=== PATIENT | female | born 1985 | race Caucasian/White ===

== ENCOUNTER 2021-09-24 00:49 | Observation (INO) | payer OTHER, SELFPAY ==
[2021-09-24] VITALS (8 sets, daily range): BP systolic 114; BP diastolic 72; PULSE 51–67; TEMP 36.4; O2SAT 99–100; BMI 25.7
[2021-09-24 01:16] LABS: Appearance Urine Clear (Clear); Bilirubin Urine Negative (Negative); Color Urine Yellow (Yellow); Glucose Urine UA Negative (Negative); Ketones Urine Negative (Negative); Leukocyte Esterase Ur Negative LEU/UL (NEGATIVE); Nitrate Urine Negative (Negative); Protein Urine Negative (Negative); Urobilinogen Urine 0.2 mg/dL (<2.0)
[2021-09-24 01:23] LABS: Mucus Urine Rare /lpf; RBC Urine 0-2 /hpf (0-2); Squamous Epithelial Cell Urine Moderate /hpf (Few); WBC Urine 0-3 /hpf (0-3)
[2021-09-24 01:32] LABS: Add Urine Microscopic? YES; Blood Urine Trace (Negative)
--- NOTE | 2021-10-06 13:30 | P.PNOB_ITS ---
OB - Triage/Final Diagnosis Visit Information Comments/Additional reasons for admission: I have assessed the risk for this patient, Fawn David, and determined that she would benefit from observation care. Evaluation Laboratory results: Laboratory Tests 09/24/21 01:10 Urine Color Yellow Urine Appearance Clear Urine pH 7.0 Ur Specific [place] 1.020 Urine Protein Negative Urine Glucose (UA) Negative Urine Ketones Negative Ur Blood (Man) Trace Urine Nitrate Negative Urine Bilirubin Negative Urine Urobilinogen 0.2 Ur Leukocyte Esterase Negative Urine RBC 0-2 Urine WBC 0-3 Ur Squamous Epith Cells Moderate H Urine Mucus Rare Final Diagnosis (1) Abdominal pain affecting : Code(s): O26.899 - Other specified related conditions, unspecified trimester; R10.9 - Unspecified abdominal pain Status: Acute
== END 2021-09-24 02:05 | disposition home or self-care (01) ==
PROVIDERS: Admitting Provider Obstetrics & Gynecology; Visit Provider Obstetrics & Gynecology
DX: O26.892 Other specified pregnancy related conditions, second trimester (principal); R10.9 Unspecified abdominal pain; Z3A.21 21 weeks gestation of pregnancy
CPT/HCPCS: 81001; 87086; G0378; G0379

== ENCOUNTER 2022-01-03 18:00 | Outpatient (CLI) | payer OTHER, SELFPAY ==
[2022-01-03 18:35] VITALS: BP 154/98; PULSE 61
[2022-01-03 18:43] LABS: Basophils Percent Auto 0.2 % (0.2-1.2); Eosinophils Percent Auto 0.5 % (0-4.4); Hematocrit 36.6 % (37.0-47.0); Hemoglobin 12.3 g/dL (12.0-15.0); Immature Granulocyte Absolute 0.06 K/mm3 (0.00-0.031); Immature Granulocyte Percent A 0.7 % (0-0.5); Immature Platelet Fraction Pct 7.4 % (0.9-11.2); Lymphocytes Absolute Auto 1.58 K/mm3 (0.9-3.2); Lymphocytes Percent Auto 18.4 % (18.3-44.2); Mean Corpuscular HGB Conc 33.6 g/dl (32-36); Mean Corpuscular Hemoglobin 29.8 pg (26-34); Mean Corpuscular Volume 88.6 fl (80-100); Mean Platelet Volume 11.5 fl (7.4-10.4); Monocytes Absolute Auto 0.6 K/mm3 (0.1-0.6); Monocytes Percent Auto 6.9 % (2.6-8.5); Neutrophils Absolute Auto 6.3 K/mm3 (1.3-6.7); Neutrophils Percent Auto 73.3 % (45.5-73.1); Platelet Count Result 110 k/mm3 (150-375); Red Blood Count 4.13 M/mm3 (4.2-5.4); Red Cell Distribution Width 13.5 % (11.5-14.5); White Blood Count 8.6 K/mm3 (4.5-10.0)
[2022-01-03 18:46] VITALS: BP 152/98; PULSE 58
[2022-01-03 18:50] LABS: Creatinine Urine 24.5 mg/dL; Total Protein Urine Random 11 mg/dL; Ur Ttl Prot Creatinine Ratio 0.45 mg/mg (0-0.20)
[2022-01-03 18:52] LABS: Appearance Urine Cloudy (Clear); Bilirubin Urine Negative (Negative); Color Urine Yellow (Yellow); Glucose Urine UA Negative (Negative); Ketones Urine Negative (Negative); Leukocyte Esterase Ur 2+ LEU/UL (NEGATIVE); Nitrate Urine Negative (Negative); Protein Urine Negative (Negative); Urobilinogen Urine 0.2 mg/dL (<2.0); pH Urine 6.5 (5.0-9.0)
[2022-01-03 18:55] LABS: Alanine Aminotransferase 41 U/L (6-35); Albumin Level 3.1 g/dL (3.5-5.1); Alkaline Phosphatase 176 U/L (38-126); Anion Gap 8 mmol/L (8-16); Aspartate Amino Transferase 44 U/L (14-36); Bilirubin,Total 0.3 mg/dL (0.2-1.3); Blood Urea Nitrogen 12 mg/dL (7-17); Calcium 8.6 mg/dL (8.4-10.2); Carbon Dioxide 20 mmol/L (22-30); Chloride 108 mmol/L (98-107); Estimated Glomerular Filt Rate > 60; Glucose 88 mg/dL (65-110); Potassium 3.6 mmol/L (3.4-5.0); Sodium 136 mmol/L (137-145); Uric Acid 3.6 mg/dL (2.5-7.5)
[2022-01-03 18:56] LABS: Add Urine Microscopic? YES; Bacteria Urine Trace /hpf; Blood Urine Trace-Intact (Negative); Calcium Oxalate Crystals Urine Present /hpf; Mucus Urine Rare /lpf; Squamous Epithelial Cell Urine Many /hpf (Few)
[2022-01-03 19:01] VITALS: BP 161/99; PULSE 59
== END 2022-01-03 19:20 | disposition home or self-care (01) ==
LOC: ANHOBOP 18:05 → ANHOBPP 18:06
PROVIDERS: PCP Internal Medicine; Visit Provider Obstetrics & Gynecology
DX: O13.9 Gestational [pregnancy-induced] hypertension without significant proteinuria, unspecified trimester (principal); Z3A.00 Weeks of gestation of pregnancy not specified
CPT/HCPCS: 36415; 59025; 80053; 81001; 82570; 84156; 84550; 85025; 85055; 87086; 87088; 87147; 99199

== ENCOUNTER 2022-01-03 21:32 | Inpatient (IN) | payer OTHER, SELFPAY ==
[2022-01-03] VITALS (8 sets, daily range): BP systolic 136–180; BP diastolic 91–105; PULSE 56–70; TEMP 37.1
[2022-01-03 23:16] LABS: Immature Platelet Fraction Pct 8.5 % (0.9-11.2); Mean Platelet Volume 11.6 fl (7.4-10.4); Platelet Count Result 122 k/mm3 (150-375)
[2022-01-03] MEDS: DINOPROSTONE 10 MG VAG INSERT VAGINAL (23:30)
[2022-01-04] VITALS (183 sets, daily range): BP systolic 109–226; BP diastolic 29–179; PULSE 51–257; TEMP 36.2–37.6; O2SAT 81–100; BMI 29.9
--- NOTE | 2022-01-04 01:56 | LDADM ---
This patient, Fawn David, was admitted to Labor/Delivery/Recovery 103 on 01/03/22 at 21:32. Plans for labor, pain management and were discussed with patient. Patient/family oriented to hospital policies and general routines including ID bracelet, bed and alarms, visiting hours, pain management, procedures, bathroom and other care routines, personal items, smoking policy, room service/diet and guest tray routines, infant security routines, and visiting hours. Patient/Family are encouraged to report perceived risks to care and to ask questions if they do not understand what they are told or what they should do. See OBIX for further documentation.
[2022-01-04] MEDS: FAMOTIDINE 20 MG/2 ML VIAL IV PUSH (02:22)
--- NOTE | 2022-01-04 05:28 | P.PNAN_ITS ---
Anes - Eval Pre Procedure Procedure: labor epidural Date/Time: 01/04/22 05:28 Pre Op Diagnosis: Induction of Labor Patient Data Age: 36 Gender: F Height: 1.65 m Weight: 81.8 kg Last Vital Signs Temp 36.6 C 01/04/22 01:52 Pulse 57 L 01/04/22 01:30 BP 138/73 01/04/22 01:30 O2 Del Method Room Air 01/04/22 01:54 Allergies Allergy/AdvReac Type Severity Reaction Status Date / Time No Known Allergies Allergy Verified 01/04/22 01:48 Home Medications Medication Instructions Recorded Confirmed Type albuterol sulfate 2 puff BYMOUTH 4-12XD PRN Wheezing 12/24/21 12/24/21 History prenat.vits,heide,lyp-blvy-pjhhk 1 tablet PO DAILY 12/24/21 01/04/22 History Laboratory Tests 01/03/22 01/03/22 01/03/22 22:12 22:21 22:21 Plt Count 122 k/mm3 L k/mm3 (150-375) MPV 11.6 fl H fl (7.4-10.4) % Immature Plt Fraction 8.5 % % (0.9-11.2) RPR Pending Blood Type A Positive Antibody Screen Negative Patient hx anesthesia problems: none Family hx anesthesia problems: none Results Review: All pre-operative results and documents have been reviewed as part of the pre- operative evaluation. [facility] Past Medical History Medical History (Updated 01/04/22 @ 05:29 by Marisa Broussard CRNA) Asthma IUP (intrauterine ), incidental Obesity (BMI 30-39.9) Family History Family History Father Hypertension Diabetes mellitus High cholesterol Mother Hypertension Social History Social History Smoking status: Never smoker Substance use: never Spiritual care concerns: No Exam Day of Procedure 01/04/22 05:28 Patient weight: obese Heart: regular rate and rhythm Lungs: normal air movement Airway: Mallampati scale Neurological: alert and oriented
[2022-01-04] MEDS: LACTATED RINGERS 1,000 ML 125 ML IV CONT ×4 (06:59→21:39)
[2022-01-04] MEDS: AMPICILLIN 2 GM/NS 100 ML 2 GM/100 ML BAG IVPB (07:00)
--- NOTE | 2022-01-04 08:30 | PM.IMHP ---
H&P: HPI History of Present Illness Date/Time: 01/04/22 17:19 Chief Complaint: Here for induction of labor Narrative: 36 y/o G1 at 37 2/7 weeks gestation who was seen in the office yesterday and found to have elevated blood pressure. She was sent to the hospital where bp was in the 140-150/90 range, platelets were 110k, and transaminases were mildly elevated, in the forties. No headache or epigastric pain. Good movement. I offered induction of labor. Cervidil was placed overnight. GBS pos. Review of Systems Review of Systems: All systems reviewed & are unremarkable except as noted in HPI and below PMFSH Past Medical History Medical History Asthma IUP (intrauterine ), incidental Obesity (BMI 30-39.9) Family History Family History Father Hypertension Diabetes mellitus High cholesterol Mother Hypertension Social History Social History Smoking status: Never smoker Substance use: never Spiritual care concerns: No Meds Home Medications and Allergies Home Medications Medication Instructions Recorded Confirmed Type albuterol sulfate 2 puff BYMOUTH 4-12XD PRN Wheezing 12/24/21 12/24/21 History prenat.vits,heide,qny-kzpu-oxpib 1 tablet PO DAILY 12/24/21 01/04/22 History Allergies Allergy/AdvReac Type Severity Reaction Status Date / Time No Known Allergies Allergy Verified 01/04/22 01:48 Vital Signs Vital Signs - 24 hr 01/03/22 22:21 01/03/22 22:31 01/03/22 22:45 Temperature Pulse Rate 67 66 67 Blood Pressure 151/98 H 150/91 H 156/105 H Pulse Oximetry Oxygen Delivery 01/03/22 23:00 01/03/22 23:15 01/03/22 23:30 Temperature Pulse Rate 66 66 56 L Blood Pressure 136/97 H 136/96 H 145/96 H Pulse Oximetry Oxygen Delivery 01/03/22 23:46 01/04/22 00:01 01/04/22 00:15 Temperature Pulse Rate 70 65 66 Blood Pressure 180/93 H 142/81 H 131/86 Pulse Oximetry Oxygen Delivery 01/04/22 00:30 01/04/22 00:45 01/04/22 01:00 Temperature Pulse Rate 64 68 61 Blood Pressure 134/83 131/87 134/80 Pulse Oximetry Oxygen Delivery 01/04/22 01:15 01/04/22 01:30 01/03/22 22:52 Temperature 37.1 C Pulse Rate 60 57 L Blood Pressure 132/93 H 138/73 Pulse Oximetry Oxygen Delivery 01/04/22 00:52 01/04/22 06:20 01/04/22 06:30 Temperature 36.6 C Pulse Rate 60 72 Blood Pressure 150/92 H 135/100 H Pulse Oximetry Oxygen Delivery 01/04/22 06:46 01/04/22 07:00 01/04/22 06:00 Temperature 36.2 C L Pulse Rate 61 68 Blood Pressure 150/94 H 140/98 H Pulse Oximetry Oxygen Delivery 01/04/22 08:32 01/04/22 08:53 01/04/22 09:01 Temperature Pulse Rate 56 L 59 L 58 L Blood Pressure 149/101 H 154/94 H 157/110 H Pulse Oximetry Oxygen Delivery 01/04/22 09:12 01/04/22 09:15 01/04/22 09:30 Temperature Pulse Rate 51 L 53 L 79 Blood Pressure 149/94 H 151/95 H Pulse Oximetry Oxygen Delivery 01/04/22 09:34 01/04/22 08:30 01/04/22 09:45 Temperature 36.3 C L Pulse Rate 73 67 Blood Pressure 142/96 H 142/95 H Pulse Oximetry Oxygen Delivery 01/04/22 10:01 01/04/22 10:07 01/04/22 10:16 Temperature Pulse Rate 60 58 L 62 Blood Pressure 157/103 H 169/99 H 161/95 H Pulse Oximetry Oxygen Delivery 01/04/22 10:29 01/04/22 10:40 01/04/22 10:00 Temperature 36.2 C L Pulse Rate 59 L 66 Blood Pressure 161/95 H 134/87 Pulse Oximetry Oxygen Delivery 01/04/22 10:45 01/04/22 11:01 01/04/22 11:16 Temperature Pulse Rate 73 78 69 Blood Pressure 148/101 H 151/106 H 144/89 H Pulse Oximetry Oxygen Delivery 01/04/22 11:30 01/04/22 11:45 01/04/22 12:00 Temperature 36.3 C L Pulse Rate 69 64 Blood Pressure 143/98 H 146/89 H Pulse Oximetry Oxygen Delivery 01/04/22
[2022-01-04] MEDS: OXYTOCIN 30 UNITS/NS 500 ML 30 UNITS/500 ML BAG 6 UNITS IV CONT (09:30)
[2022-01-04] MEDS: LABETALOL HCL INJ 100 MG/20 ML VIAL 20 MG IV PUSH ×2 (10:28→14:03)
[2022-01-04 10:39] LABS: Rapid Plasma Reagin Non-Reactive (NonReactive)
[2022-01-04] MEDS: AMPICILLIN 1 GM/NS 50 ML 1 GM/50 ML BAG IVPB ×3 (11:00→19:06)
[2022-01-04] MEDS: LABETALOL HCL INJ 100 MG/20 ML VIAL 40 MG IV PUSH (11:04)
[2022-01-04] MEDS: fentaNYL CITRATE INJ (*CRX) 100 MCG/2 ML VIAL 50 MCG IV PUSH (13:54)
--- NOTE | 2022-01-04 13:56 | WPDOBADMIT ---
Obstetrics - Admit Note Admission Note: record reviewed. No pertinent additions to the history and/or any subsequent changes in the physical findings that are not consistent with the expected course of the were found. Additions to the history and/or subsequent changes in the physical findings follow. None.
[2022-01-04] MEDS: SODIUM CHLORIDE 0.9% IV 300 ML 600 ML I-UTERINE (15:44)
--- NOTE | 2022-01-04 15:45 | PM.OBPNLAB ---
Pain Control Date/time seen: 01/04/22 15:45 Comments: Comfortable with epidural. AVSS NST good variability, with mild variable decelerations with contractions. TOCO: contractions every 2-4 min Cervix 6/80/-2 Amnioinfusion. Continue labor.
--- NOTE | 2022-01-04 17:27 | PM.OBPNLAB ---
Pain Control Date/time seen: 01/04/22 17:27 Comfortable AVSS NST good variability, mild variable decelerations with contractions resolved after amnioinfusion. TOCO: contractions every 2-3 min Cervix 7 cm per RN Continue labor. I have signed out the patient to Dr. Claude Dela Cruz. He is aware.
--- NOTE | 2022-01-04 22:25 | PM.OBPRVD ---
OB - Delivery Note Procedure Delivery date: 01/04/22 Events: Gestational Hypertension Induction method: Per Cervidil Protocol Delivery augmentation: Rupture of Membranes and Pitocin Delivery monitor: External FHT and Internal Uterine Route of delivery: Episiotomy description: None Laceration Description: None Specimen: No Quantitative Blood Loss (ml): 59 Anesthesia type: Epidural Disposition: Floor Complications: mec Baby Date of : 01/04/22 Time of : 22:13 Weeks of gestation at delivery: 37 gender: Female Weight (pounds): 6 Weight (ounces): 9 presentation: vertex position: Right Occiput Posterior Placenta delivery description: Spontaneous Cord Vessel Description: 3 Vessels score one minute: 7 score five minutes: 10
[2022-01-04] MEDS: OXYTOCIN 30 UNITS/NS 500 ML 30 UNITS/500 ML BAG 125 UNITS IV CONT (22:36)
[2022-01-05] VITALS (10 sets, daily range): BP systolic 129–160; BP diastolic 77–111; PULSE 67–82; RESP 16–18; TEMP 36.1–36.8; O2SAT 96–100
[2022-01-05 05:48] LABS: Hematocrit 33.4 % (37.0-47.0); Hemoglobin 11.1 g/dL (12.0-15.0)
--- NOTE | 2022-01-05 07:37 | PM.OBPNVD ---
OB - PN: Subj Subjective Date/time seen: 01/05/22 07:37 Patient comments: no complaints baby status: doing well OB - PN: Obj Data Labs CBC & Chem 7: 01/05/22 05:40 Labs: Laboratory Results - last 24 hr 01/03/22 01/05/22 22:21 05:40 Hgb 11.1 L Hct 33.4 L RPR Non-reactive OB - PN A/P Plan day: 1 Plan: routine care Time Spent With Patient Time: Total time spent is greater than 50% in coordination of care (as documented) at patient's floor/unit and/or counseling patient: Time with patient: less than 15 minutes
[2022-01-05] MEDS: MULTIVIT/MIN/PREN/FOL AC/IRON TABLET 1 TAB PO (08:00)
[2022-01-05] MEDS: DOCUSATE SODIUM 100 MG CAPSULE PO (08:00)
--- NOTE | 2022-01-05 09:00 | WPDANLDPN2 ---
Anes-Prog Note L&D Date/Time: 01/05/22 09:00 Comfortable throughout: labor and delivery Neuraxial method: epidural Epidural/Spinal procedure site: tender Neuro status: Neuro function grossly intact. Cardiovascular status: normal Respiratory status: normal Airway patency: baseline Mental status: baseline Post-Op hydration status: normal Vital Signs: Last Vital Signs Temp 97.5 F L 01/05/22 01:38 Pulse 82 01/05/22 01:38 Resp 16 01/05/22 01:38 BP 138/89 01/05/22 01:38 Pulse Ox 81 L 01/04/22 21:35 O2 Del Method Room Air 01/04/22 01:54 Pain score (VAS): 3 I/O: Intake & Output 01/04/22 01/05/22 01/05/22 23:59 07:59 15:59 Intake Total 2550 400 Output Total 750 798 Balance 1800 -398 Post-procedural complaints: none Patient feedback: Patient satisfied with anesthetic care.
[2022-01-05] MEDS: IBUPROFEN 600 MG TABLET PO ×2 (10:40→21:10)
--- NOTE | 2022-01-05 15:24 | PC.NURSE ---
[id number] Introductions were made, then consulted with patient to assess needs related to . Mother led the conversation with her?plans to feed?her infant and the?experience so far. Resources provided for inpatient and outpatient services using a resource guide and mom/baby guide. Mother voiced understanding of information and will call if there is a request for assistance. [id number] Consulted with patient to assess needs related to . Mother led conversation with her experience with feeding baby so far. Mother works well with her with encouragement. Reviewed working with , breast, nipples and how to protect the nipples with an optimal deep latch, good positioning, and good hand washing. Encouraged understanding the benefits of skin to skin, responding to feeding cues, frequencies of feeding 8-12 times in 24 hours (approximately 2-3 hours), hand expression, massage touch to stimulate for feeding cues, milk production, intake/output feeding sheet and signs of adequate intake encouraging swallowing at the breast. Mother's nipples are inverted. Discussed milk production as it pertains to her inverted nipples, infant not latching effectively, latching with a nipple shield and mother agreed to initiate pumping. [id number] Breast pump provided due to ineffective and inverted nipples. Instructions given on cleaning, care, usage, that there should be no pain, pumping schedule for milk production, collection, and storage of human milk. Parents are encouraged to record pumping schedule on the feeding sheet. Patient was assessed for correct placement, flange size, to pump for comfort and nipple stretching/stimulation for adequate milk production every 3 hours (8 times in 24 hours) 1-2 times at night. Infant placed skin to skin after left nipple everted some with pumping. Infant demonstrated few feeding cues, then went back to sleep. Mother voiced understanding of the education shared along with mom and baby guide for additional resource information. Reported to the primary RN.
--- NOTE | 2022-01-05 15:40 | PC.NURSE ---
1355 - Infant is swaddled in mother's arms. Blood sugar resulted at 35 mg/dl. Discussed the signs of adequate intake using the pie demonstration, milk production and encouraged mother to pump every 3 hours, and the possibility of supplementing infant with breastmilk or formula if needed. Primary entered the room with a formula bottle and initiated conversation.
[2022-01-05] MEDS: LABETALOL HCL 100 MG TABLET 200 MG PO (16:09)
--- NOTE | 2022-01-06 06:19 | PM.DS ---
DS: Admitting Diagnosis Discharge Date Admitting Diagnosis Term with gestational hypertension DS: Discharge Diagnosis Discharge Diagnosis (1) GBS (group B Streptococcus carrier), +RV culture, currently : Code(s): O99.820 - Streptococcus B carrier state complicating Status: Acute (2) Preeclampsia: Code(s): O14.90 - Unspecified pre-eclampsia, unspecified trimester Status: Acute DS: Summary Hospital Course Reason for hospitalization: Induction of labor at term secondary to elevated blood pressures Hospital Course: The patient underwent successful spontaneous vaginal delivery without difficulty. She was successfully prophylaxis for group B strep. Her blood pressures were slightly elevated and she was placed on labetalol 200mg b.i.d. which she will take home for the next 2 weeks and then be rechecked she was up, voiding without difficulty, ambulating, generally without complaints. Time Spent with Patient Time attestation: Total time spent providing and/or coordinating discharge services: Discharge Plan Discharge Attending physician on discharge: Pawan Newton Discharging Clinician: Margarito Dennison Patient Disposition: Home, Self-Care Activity: may shower, no straining, may drive after 2 weeks and pelvic rest Diet: heart healthy Wound Care Instructions: follow printed instructions Patient Instructions: Antibiotic Form Stand Alone Forms: General Discharge Information Follow-up/Referrals: Margarito Dennison MD [Physician] - Discharge Medications: New labetalol 200 mg tablet 200 mg PO Q12H Qty: 60 0RF No Action #2 Tablet 1 tablet PO DAILY albuterol sulfate inhaler 2 puff BYMOUTH 4-12XD PRN (Reason: Wheezing) Date of admission: 01/03/22 21:32 Primary Care Provider: WilliamLeon Admitting Provider: Pawan Newton Attending physician on admission: Pawan Newton Condition: Stable
--- NOTE | 2022-01-06 06:21 | PM.OBPNVD ---
OB - PN: Subj Subjective Date/time seen: 01/06/22 06:21 Patient comments: no complaints and pain well controlled baby status: doing well and nursing well OB - PN: Obj Data Labs CBC & Chem 7: 01/05/22 05:40 OB - PN A/P Plan day: 2 Plan: routine care, discharge home and follow up 6 weeks (2 weeks) Time Spent With Patient Time: Total time spent is greater than 50% in coordination of care (as documented) at patient's floor/unit and/or counseling patient: Time with patient: less than 15 minutes
[2022-01-06] MEDS: IBUPROFEN 600 MG TABLET PO (06:59)
[2022-01-06 07:45] VITALS: BP 132/87; PULSE 69; RESP 16; TEMP 36.1; O2SAT 99
[2022-01-06 10:17] VITALS: PULSE 88
[2022-01-06] MEDS: LABETALOL HCL 100 MG TABLET 200 MG PO (10:17)
[2022-01-06] MEDS: MULTIVIT/MIN/PREN/FOL AC/IRON TABLET 1 TAB PO (10:18)
[2022-01-08 09:03] VITALS: BP 149/94; PULSE 70; RESP 20; TEMP 36.9; O2SAT 99
== END 2022-01-06 14:34 | disposition home or self-care (01) | DRG 807 ==
LOC: ANHLDR 01-04 16:28 → ANHOB2 01-06 00:18 → ANHLDR 01-07 11:59 → ANHOB2 01-07 11:59
PROVIDERS: Admitting Provider Obstetrics & Gynecology; PCP Internal Medicine; Visit Provider Obstetrics & Gynecology
DX: O99.824 Streptococcus B carrier state complicating childbirth (principal); Z37.0 Single live birth; O99.214 Obesity complicating childbirth; O14.04 Mild to moderate pre-eclampsia, complicating childbirth; O13.4 Gestational [pregnancy-induced] hypertension without significant proteinuria, complicating childbirth; O99.52 Diseases of the respiratory system complicating childbirth; J45.909 Unspecified asthma, uncomplicated; O76 Abnormality in fetal heart rate and rhythm complicating labor and delivery; Z3A.37 37 weeks gestation of pregnancy; Z23 Encounter for immunization
CPT/HCPCS: 36415; 59025; 80053; 81001; 82570; 84156; 84550; 85014; 85018; 85025; 85049; 85055; 86592; 86850; 86900; 86901; 87086; 87088; 87147; 90471; 90686; 99199; A9270; G0008; J0290; J2590; J2795; J3010; J7030; J7120

== ENCOUNTER 2022-01-27 15:12 | Emergency (ER) | payer OTHER, SELFPAY ==
[2022-01-27] VITALS (8 sets, daily range): BP systolic 126–149; BP diastolic 90–98; PULSE 63–114; RESP 12–25; TEMP 36.1; O2SAT 85–100
--- NOTE | ~2022-01-27 | CT_ITS ---
EXAMINATION: CTA chest PE protocol DATE: 01/27/2022 17:56 INDICATION: Shortness of breath and tachycardia TECHNIQUE: Computed tomography angiography (CTA) of the chest was performed with 100 mL Omnipaque-350 intravenous contrast timed to evaluate the pulmonary arteries. Coronal maximum intensity projection 3D-reconstructions were created by the technologist. The dose-length product (DLP) was 179.64 mGy-cm. Automated exposure control and iterative reconstruction technique were employed. COMPARISON: None. FINDINGS: The pulmonary arteries are well-opacified. No pulmonary embolism is identified. No patholog ically enlarged thoracic lymph nodes are identified. The heart size is normal. The lungs are free of acute opacities. No pleural effusion or pneumothorax. A stone is noted in the gallbladder. IMPRESSION: 1. No pulmonary embolism or acute cardiopulmonary abnormality. Reviewed, dictated and finalized at location F.
--- NOTE | ~2022-01-27 | XR_ITS ---
EXAMINATION: XR chest 2V 01/27/2022 15:49 INDICATION: Shortness of breath PROCEDURE: 2 view chest COMPARISON: No prior studies for comparison. FINDINGS: The lungs are clear. The cardiomediastinal silhouette is within normal limits. There are no pleural effusions. There is no pneumothorax suspected. IMPRESSION: 1: NO ACUTE CARDIOPULMONARY DISEASE. Reviewed, dictated and finalized at location A.
--- NOTE | 2022-01-27 15:23 | ECG_ITS ---
Measurements Intervals [place] Rate: 107 P: 78 [place]: 128 QRS: 85 QRSD: 80 T: 61 QT: 313 QTc: 419 Interpretive Statements SINUS TACHYCARDIA NO PREVIOUS ECG AVAILABLE FOR COMPARISON Electronically Signed On 01-27-2022 15:55:20 CDT by Phyllis Calderón M.D.
[2022-01-27 15:41] LABS: Basophils Percent Auto 0.3 % (0.2-1.2); Eosinophils Absolute Auto 0.2 K/mm3 (0-0.3); Eosinophils Percent Auto 2.8 % (0-4.4); Hematocrit 45.6 % (37.0-47.0); Hemoglobin 14.9 g/dL (12.0-15.0); Immature Granulocyte Absolute 0.03 K/mm3 (0.00-0.031); Immature Granulocyte Percent A 0.4 % (0-0.5); Lymphocytes Absolute Auto 1.23 K/mm3 (0.9-3.2); Mean Corpuscular HGB Conc 32.7 g/dl (32-36); Mean Corpuscular Hemoglobin 29.6 pg (26-34); Mean Corpuscular Volume 90.5 fl (80-100); Mean Platelet Volume 9.7 fl (7.4-10.4); Monocytes Absolute Auto 0.4 K/mm3 (0.1-0.6); Monocytes Percent Auto 5.8 % (2.6-8.5); Neutrophils Percent Auto 72.7 % (45.5-73.1); Platelet Count Result 182 k/mm3 (150-375); Red Blood Count 5.04 M/mm3 (4.2-5.4); Red Cell Distribution Width 12.9 % (11.5-14.5); White Blood Count 6.9 K/mm3 (4.5-10.0)
[2022-01-27 15:51] LABS: Alanine Aminotransferase 88 U/L (6-35); Albumin Level 4.4 g/dL (3.5-5.1); Alkaline Phosphatase 97 U/L (38-126); Anion Gap 9 mmol/L (8-16); Aspartate Amino Transferase 61 U/L (14-36); Bilirubin,Total 0.7 mg/dL (0.2-1.3); Blood Urea Nitrogen 16 mg/dL (7-17); Calcium 9.2 mg/dL (8.4-10.2); Carbon Dioxide 25 mmol/L (22-30); Chloride 104 mmol/L (98-107); Estimated CRCL calculation 77 ml/min; Estimated Glomerular Filt Rate > 60; Glucose 93 mg/dL (65-110); Potassium 3.8 mmol/L (3.4-5.0); Sodium 138 mmol/L (137-145)
[2022-01-27 16:44] LABS: Bacteria Urine Trace /hpf; Mucus Urine Rare /lpf; Renal Epithelial Cells Urine Rare /hpf (None Seen); Squamous Epithelial Cell Urine Rare /hpf (Few)
[2022-01-27 16:49] LABS: Appearance Urine Clear (Clear); Bilirubin Urine Negative (Negative); Blood Urine 3+ (Negative); Color Urine Yellow (Yellow); Glucose Urine UA Negative (Negative); Ketones Urine Negative (Negative); Leukocyte Esterase Ur 2+ LEU/UL (Negative); Nitrate Urine Negative (Negative); Protein Urine Negative (Negative); Urobilinogen Urine 0.2 mg/dL (<2.0); pH Urine 6.5 (5.0-9.0)
[2022-01-27 16:50] LABS: Add Urine Microscopic? YES
[2022-01-27 16:56] LABS: INR 1.1; Partial Thromboplastin Time 25.6 SECONDS (22.3-36.8); Prothrombin Time 13.3 Seconds (11.1-14.7)
[2022-01-27 17:13] LABS: D Dimer 0.82 ug/mL (<0.48)
--- NOTE | 2022-01-27 17:17 | ED.ARRPALP ---
HPI - Arrhythmia/Palpitations General Chief Complaint: Arrhythmia/Palpitations Stated Complaint: increased HR Time Seen by Provider: 01/27/22 15:50 Source: patient and RN notes reviewed Mode of arrival: ambulatory Limitations: no limitations History of Present Illness HPI narrative: THis is a 36 year old female who presents for evaluation of a rapid heart rate. She is 3 weeks , and she reports preeclampsia during her . She was discharged on labetolol after her delivery because she continued to have hypertension. She noted on Monday that her blood pressure was low so her labetolol was discontinued. Last night she had episode of chest tightness that she thought was due asthma, so she used her albuterol and her symptoms resolved. Today she was sitting around and she felt her heart pounding. Her smart watch reported that her heart rate was 210, so she called Dr. Newton. She was told to come to ER. She denies any chest pain, sob, headache, abdominal pain or dizziness today. She reports improvement in her leg swelling since her . She denies history of SVT or arrhythmia. Related Data Home Medications Medication Instructions Recorded Confirmed albuterol sulfate 2 puff BYMOUTH 4-12XD PRN Wheezing 12/24/21 12/24/21 prenat.vits,heide,kdl-jtfc-gpxjm 1 tablet PO DAILY 12/24/21 01/04/22 Allergies Allergy/AdvReac Type Severity Reaction Status Date / Time No Known Allergies Allergy Verified 01/04/22 01:48 Review of Systems Review of Systems: All systems reviewed & are unremarkable except as noted in HPI and below Constitutional: Constitutional: Denies chills, Denies fatigue and Denies fever(s) Cardiovascular: Cardiovascular: Denies chest pain, Reports rapid heart rate and Denies radiating jaw, neck or arm pain Respiratory: Respiratory: Denies cough, Reports dyspnea and Denies wheezing Gastrointestinal: Gastrointestinal: Denies abdominal pain, Denies diarrhea, Denies nausea and Denies vomiting Neurologic: Denies headache(s) and Denies focal weakness PMFSH Past Medical History Medical History Asthma IUP (intrauterine ), incidental Obesity (BMI 30-39.9) Family History Family History Father Hypertension Diabetes mellitus High cholesterol Mother Hypertension Social History Social History Smoking status: Never smoker Substance use: never Spiritual care concerns: No Exam Const: General: no acute distress and alert Nutritional Appearance: well nourished Orientation/consciousness: patient oriented x3 HENMT: Head: normal to inspection Eyes: EOM: EOMs intact bilaterally Chest: Chest palpation & inspection: normal inspection of the chest Resp: Effort & Inspection: normal respiratory effort Auscultation: clear to auscultation bilaterally Cardio: Rate: regular rate Rhythm: regular rhythm Heart sounds: no murmurs GI: GI Palp: Yes Soft to palpation, No Tenderness to palpation present (GI), No Guarding due to palpation present (GI) and No Rigid due to palpation Auscultation: normal bowel sounds Skin: General skin exam: normal color Rashes: no rashes Wounds: no wounds Neuro: General: patient oriented x3, moves all extremities and No CN's II-XI intact bilaterally Psych: Mental Status: mental status grossly normal Affect: normal affect Attitude: cooperative Course Reevaluation(s) Reevaluation #1: Patient has no complaints now. She is sinus rhythm with rate of 71. It is possible earlier she had episode of SVT. Her blood pressure is 134/92. She will restart her labetolol. I discussed labs and findings with Dr. Claude Dela Cruz who agrees with plan and out patient follow up Date: 01/27/22 Time: 19:15 Vital Signs Vital signs: Vital Signs Temperature 97.0 F L 01/27/22 15:18 Pulse Rate 114 H 1
[2022-01-27] MEDS: LACTATED RINGERS 1,000 ML 999 ML IV CONT (17:21)
[2022-01-27 18:16] LABS: Troponin I < 0.012 ng/mL (0.000-0.034)
== END 2022-01-27 19:33 | disposition home or self-care (01) ==
PROVIDERS: Emergency Medicine; Emergency Provider General Practice; PCP Internal Medicine
DX: O90.89 Other complications of the puerperium, not elsewhere classified (principal); R00.2 Palpitations; O13.5 Gestational [pregnancy-induced] hypertension without significant proteinuria, complicating the puerperium
CPT/HCPCS: 36415; 71046; 71275; 80053; 81001; 83735; 84484; 85025; 85380; 85610; 85730; 87086; 87088; 87147; 93005; 96360; 96361; 99284; J7120; Q9967

== ENCOUNTER 2023-07-19 08:54 | Emergency (ER) | payer BC, SELFPAY ==
[2023-07-19] VITALS (10 sets, daily range): BP systolic 96–154; BP diastolic 54–128; PULSE 93–204; RESP 13–26; TEMP 36.4–37.3; O2SAT 97–100
--- NOTE | ~2023-07-19 | XR_ITS ---
EXAMINATION: XR chest 2V DATE: 07/19/2023 10:24 INDICATION: Supraventricular tachycardia. TECHNIQUE: Frontal and lateral views of the chest were obtained. COMPARISON: None. FINDINGS: A calcified left lung nodule is consistent with old granulomatous disease. No pleural effus ion or pneumothorax. The heart size is normal. IMPRESSION: 1. No acute cardiopulmonary disease. Reviewed, dictated and finalized at location A.
--- NOTE | 2023-07-19 09:05 | ECG_ITS ---
Measurements Intervals [place] Rate: 198 P: NE: 0 QRS: 73 QRSD: 78 T: 47 QT: 218 QTc: 396 Interpretive Statements SUPRAVENTRICULAR TACHYCARDIA ST DEPRESSION, CONSIDER SUBENDOCARDIAL INJURY [0.1+ mV ST DEPRESSION] ABNORMAL ECG COMPARED TO ECG 01/27/2022 15:28:31 SUPRAVENTRICULAR TACHYCARDIA NOW PRESENT Electronically Signed On 07-19-2023 14:34:12 CDT by Sarabjit Bruno M.D.
[2023-07-19] MEDS: SODIUM CHLORIDE 0.9% IV 1,000 ML 999 ML IV CONT ×2 (09:18→10:55)
--- NOTE | 2023-07-19 09:18 | PC.NURSE ---
6MG ADENOSINE GIVEN IVP BY DR DICKEY
--- NOTE | 2023-07-19 09:22 | ECG_ITS ---
Measurements Intervals [place] Rate: 107 P: 75 [place]: 129 QRS: 81 QRSD: 78 T: 64 QT: 302 QTc: 403 Interpretive Statements SINUS TACHYCARDIA OTHERWISE NORMAL ELECTROCARDIOGRAM COMPARED TO ECG 07/19/2023 09:12:52 SINUS TACHYCARDIA REPLACES SUPRAVENTRICULAR TACHYCARDIA Electronically Signed On 07-21-2023 7:34:21 CDT by Soy Vincent M.D.
[2023-07-19 09:32] LABS: Basophils Percent Auto 0.1 % (0.2-1.2); Hematocrit 45.2 % (37.0-47.0); Hemoglobin 15.1 g/dL (12.0-15.0); Immature Granulocyte Absolute 0.02 K/mm3 (0.00-0.031); Immature Granulocyte Percent A 0.3 % (0-0.5); Lymphocytes Absolute Auto 1.71 K/mm3 (0.9-3.2); Lymphocytes Percent Auto 24.9 % (18.3-44.2); Mean Corpuscular HGB Conc 33.4 g/dl (32-36); Mean Corpuscular Hemoglobin 29.1 pg (26-34); Mean Corpuscular Volume 87.1 fl (80-100); Mean Platelet Volume 10.3 fl (7.4-10.4); Monocytes Absolute Auto 0.6 K/mm3 (0.1-0.6); Monocytes Percent Auto 8.3 % (2.6-8.5); Neutrophils Absolute Auto 4.6 K/mm3 (1.3-6.7); Neutrophils Percent Auto 66.4 % (45.5-73.1); Platelet Count Result 177 k/mm3 (150-375); Red Blood Count 5.19 M/mm3 (4.2-5.4); Red Cell Distribution Width 12.9 % (11.5-14.5); White Blood Count 6.9 K/mm3 (4.5-10.0)
[2023-07-19 09:43] LABS: Alanine Aminotransferase 14 U/L (6-35); Albumin Level 4.3 g/dL (3.5-5.1); Alkaline Phosphatase 51 U/L (38-126); Anion Gap 10 mmol/L (4-12); Aspartate Amino Transferase 26 U/L (14-36); Bilirubin,Total 0.6 mg/dL (0.2-1.3); Blood Urea Nitrogen 10 mg/dL (7-17); Calcium 9.2 mg/dL (8.4-10.2); Carbon Dioxide 20 mmol/L (22-30); Chloride 106 mmol/L (98-107); Estimated CRCL calculation 65 ml/min; Estimated Glomerular Filt Rate > 60; Glucose 111 mg/dL (65-110); Magnesium 1.8 mg/dL (1.6-2.3); Potassium 3.8 mmol/L (3.4-5.0); Sodium 136 mmol/L (137-145)
[2023-07-19 09:52] LABS: Prothrombin Time 13.6 Seconds (11.1-14.7)
[2023-07-19 09:53] LABS: Partial Thromboplastin Time 29.9 Seconds (22.3-36.8)
[2023-07-19 10:14] LABS: Influenza A QL RT-PCR Positive (Negative); Influenza B QL RT-PCR Negative (Negative); RSV RNA, RT-PCR Negative (Negative); SARS-CoV-2 RNA PCR Negative (Negative)
--- NOTE | 2023-07-19 10:38 | ED.ARRPALP ---
HPI - Arrhythmia/Palpitations General Chief Complaint: Arrhythmia/Palpitations Stated Complaint: increased HR Time Seen by Provider: 07/19/23 09:01 History of Present Illness HPI narrative: patient is a 37-year-old female who presents to the ER with 2 issues. Her 1st issue is that she has been having cough and congestion for last 3 days. Associated with subjective fever. Her child has influenza a. She has seen she has the same illness. She woke up this morning and developed sudden racing of her heart that has not improved. She has no chest pain. She has no shortness of breath associated with this. Her heart rate monitor shoulder that her heart rate was too high and she opted to come to the ER for further evaluation. She has history of palpitations when she was few years ago and had been taking labetalol. 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 She is not currently on any rate control medications. Related Data Home Medications Medication Instructions Recorded Confirmed albuterol sulfate 2 puff [id number] PRN Wheezing 12/24/21 12/24/21 prenat.vits,heide,sie-tswt-atycp 1 tablet PO DAILY 12/24/21 01/04/22 Allergies Allergy/AdvReac Type Severity Reaction Status Date / Time No Known Allergies Allergy Verified 01/04/22 01:48 Review of Systems Review of Systems: All systems reviewed & are unremarkable except as noted in HPI and below Constitutional: Constitutional: Denies chills, Reports fatigue and Denies fever(s) ENT: Reports nasal congestion and Reports sore throat Cardiovascular: Cardiovascular: Denies chest pain, Reports rapid heart rate and Denies radiating jaw, neck or arm pain Respiratory: Respiratory: Denies chest congestion, Reports cough and Denies dyspnea Gastrointestinal: Gastrointestinal: Reports no additional gastrointestinal complaints Musculoskeletal: Musculoskeletal: Reports no additional musculoskeletal complaints [facility] Past Medical History Medical History Asthma IUP (intrauterine ), incidental Obesity (BMI 30-39.9) Family History Family History Father Hypertension Diabetes mellitus High cholesterol Mother Hypertension Social History Social History Smoking status: Never smoker Substance use: never Spiritual care concerns: No Exam Narrative: GENERAL: Well-appearing, well-nourished, and in no acute distress. HEAD: Normocephalic, atraumatic. ENT: Mucous membranes moist. NECK: Supple. CHEST: Clear to auscultation. No respiratory distress. HEART: Tachycardic and regular. Normal peripheral pulses. ABDOMEN: Soft, nontender, nondistended. EXTREMITIES: Normal range of motion. No edema. SKIN: Warm, dry, no rash. NEURO: Alert and oriented x3. PSYCH: Normal mood and affect. Course Course Emergency Course: patient converted from SVT to sinus tachycardia after 1 dose of adenosine 6 mg. Patient given 2 L of IV fluid and tachycardia resolved. Discussed lab work including positive influenza A results with patient. She is outside the window for Tamiflu. I discussed the case with Cardiology on-call. Patient will be started on low-dose beta-muriel for home and can follow up in clinic. Patient verbalized understanding and treatment plan. Return precautions also discussed. Vital Signs Vital signs: Vital Signs Temperature 97.6 F 07/19/23 08:54 Pulse Rate 134 H 07/19/23 08:54 Respiratory Rate 18 07/19/23 08:54 Blood Pressure 96/54 L 07/19/23 08:54 Pulse Oximetry 98 07/19/23 08:54 Temperature 99.2 F 07/19/23 09:12 Pulse Rate 98 07/19/23 12:20 Respiratory Rate 16 07/19/23 12:20 Blood Pressure 112/78 07/19/23 12:20 Pulse Oximetry 99 07/19/23 12:20 MDM - Arrhythmia/Palpitations Lab Data 07/19/23 09:24
== END 2023-07-19 12:20 | disposition home or self-care (01) ==
PROVIDERS: Nurse Practitioner Family; Emergency Provider Emergency Medicine; PCP Internal Medicine
DX: I47.10 Supraventricular tachycardia, unspecified (principal); J10.1 Influenza due to other identified influenza virus with other respiratory manifestations; J45.909 Unspecified asthma, uncomplicated; Z20.822 Contact with and (suspected) exposure to COVID-19
CPT/HCPCS: 36415; 71046; 80053; 83735; 85025; 85610; 85730; 87637; 93005; 96360; 96361; 99284; J7030